=== PATIENT | female | born 1990 | race African-American/Black ===

== ENCOUNTER 2017-10-04 15:45 | Observation (INO) | payer SELFPAY ==
[2017-10-04] MEDS ORDERED: SODIUM CHLORIDE 0.9% FLUSH 10 ML FLUSH IVF (16:30)
[2017-10-04] MEDS: KETOROLAC TROMETHAMINE 30 MG/ML (IVP) VIAL IV PUSH (17:08)
[2017-10-04] MEDS: SODIUM CHLOR 0.9% 1000 ML INJ 1,000 ML IV (17:08)
[2017-10-04 17:35] LABS: AUTOMATED NEUTROPHIL # 4.6 TH/MM3 (1.8-7.7); BASOPHIL # 0.1 TH/MM3 (0-0.2); BASOPHIL % 0.7 % (0.0-2.0); EOSINOPHIL # 0.5 TH/MM3 (0-0.4); EOSINOPHIL % 5.6 % (0.0-4.0); HEMATOCRIT 41.5 % (35.0-46.0); HEMO FLAGS DIFF FINAL; HEMOGLOBIN 13.1 GM/DL (11.6-15.3); LYMPH % 36.4 % (9.0-44.0); LYMPHOCYTE # 3.4 TH/MM3 (1.0-4.8); MEAN CORPUSCULAR HEMOGLOBIN 21.8 PG (27.0-34.0); MEAN CORPUSCULAR HGB CONC 31.6 % (32.0-36.0); MEAN PLATELET VOLUME 9.6 FL (7.0-11.0); MONO % 7.5 % (0.0-8.0); MONOCYTE # 0.7 TH/MM3 (0-0.9); NEUT % 49.8 % (16.0-70.0); PLATELET COUNT 219 TH/MM3 (150-450); RED BLOOD COUNT 6.02 MIL/MM3 (4.00-5.30); RED CELL DISTRIBUTION WIDTH 15.4 % (11.6-17.2); WHITE BLOOD COUNT 9.3 TH/MM3 (4.0-11.0)
[2017-10-04 17:48] LABS: PROTHROMBIN TIME - PATIENT 9.9 SEC (9.8-11.6)
[2017-10-04 17:50] LABS: D-DIMER 0.55 MG/L FEU (0.00-0.50)
[2017-10-04 17:54] LABS: ALBUMIN 3.4 GM/DL (3.4-5.0); ANION GAP 7 MEQ/L (5-15); AST (GOT) 14 U/L (15-37); BICARBONATE 27.3 MEQ/L (21.0-32.0); BLOOD UREA NITROGEN 13 MG/DL (7-18); CALCIUM 8.4 MG/DL (8.5-10.1); CHLORIDE 104 MEQ/L (98-107); CREATININE 0.85 MG/DL (0.50-1.00); GLOMERULAR FILTRATION RATE 96 ML/MIN (>89); GLUCOSE,RANDOM 175 MG/DL (74-106); POTASSIUM 3.9 MEQ/L (3.5-5.1); SODIUM (NA) 138 MEQ/L (136-145)
[2017-10-04 17:55] LABS: ALT (GPT) 17 U/L (10-53)
[2017-10-04 17:58] LABS: ALKALINE PHOSPHATASE 61 U/L (45-117); TOTAL BILIRUBIN ADULT 0.2 MG/DL (0.2-1.0); TOTAL PROTEIN 7.1 GM/DL (6.4-8.2); TROPONIN I LESS THAN 0.02 NG/ML (0.02-0.05)
[2017-10-04] MEDS: IOHEXOL 350 MG/ML 10 ML VIAL (for RAD DIAG) IVCONTRAST (18:45)
[2017-10-04] MEDS ORDERED: ACETAMINOPHEN 325 MG TAB PO (19:30)
[2017-10-04] MEDS ORDERED: SENNOSIDES 8.6 MG TAB PO (19:30)
[2017-10-04] MEDS ORDERED: SODIUM CHLORIDE 0.9% FLUSH 10 ML FLUSH IV FLUSH (19:30)
[2017-10-04] MEDS ORDERED: ONDANSETRON HCL 4 MG/2 ML VIAL IVP (19:30)
[2017-10-04] MEDS ORDERED: NALOXONE HCL 0.4 MG/ML AMP IV PUSH (19:30)
[2017-10-04] MEDS ORDERED: MAGNESIUM HYDROXIDE SUSP 30 ML CUP PO (19:30)
[2017-10-04] MEDS: SODIUM CHLORIDE 0.9% FLUSH 10 ML FLUSH IV FLUSH (20:55)
[2017-10-05] MEDS ORDERED: METOPROLOL TARTRATE 25 MG TAB PO (03:15)
[2017-10-05] MEDS ORDERED: RESP: IPRATROPIUM 0.5 MG/2.5 ML NEB NEB (03:45)
[2017-10-05] MEDS: METOPROLOL TARTRATE 25 MG TAB PO ×4 (03:52→21:45)
[2017-10-05] MEDS: ENOXAPARIN SODIUM 120 MG/0.8 ML SYRINGE SQ (03:52)
[2017-10-05] MEDS ORDERED: GLUCAGON 1 MG/ML VIAL OTHER (07:45)
[2017-10-05] MEDS ORDERED: DEXTROSE 50% IN WATER 50 ML VIAL(D50) IV PUSH (07:45)
[2017-10-05] MEDS: INSULIN ASPART SUPPLEMENTAL SCALE SQ ×4 (08:00→21:00)
[2017-10-05 08:03] LABS: AUTOMATED NEUTROPHIL # 3.1 TH/MM3 (1.8-7.7); BASOPHIL # 0.1 TH/MM3 (0-0.2); BASOPHIL % 0.7 % (0.0-2.0); EOSINOPHIL # 0.6 TH/MM3 (0-0.4); EOSINOPHIL % 7.4 % (0.0-4.0); HEMATOCRIT 39.3 % (35.0-46.0); HEMO FLAGS DIFF FINAL; HEMOGLOBIN 12.3 GM/DL (11.6-15.3); LYMPH % 43.1 % (9.0-44.0); LYMPHOCYTE # 3.3 TH/MM3 (1.0-4.8); MEAN CELL VOLUME 68.4 FL (80.0-100.0); MEAN CORPUSCULAR HEMOGLOBIN 21.4 PG (27.0-34.0); MEAN CORPUSCULAR HGB CONC 31.4 % (32.0-36.0); MEAN PLATELET VOLUME 9.2 FL (7.0-11.0); MONO % 8.8 % (0.0-8.0); MONOCYTE # 0.7 TH/MM3 (0-0.9); PLATELET COUNT 208 TH/MM3 (150-450); RED BLOOD COUNT 5.74 MIL/MM3 (4.00-5.30); RED CELL DISTRIBUTION WIDTH 15.4 % (11.6-17.2); WHITE BLOOD COUNT 7.8 TH/MM3 (4.0-11.0)
[2017-10-05 08:20] LABS: BACTERIA, URINE RARE /hpf; BILIRUBIN, URINE NEG (NEG); BLOOD, URINE TRACE (NEG); GLUCOSE,URINE NEG (NEG); KETONE, URINE NEG (NEG); MUCUS URINE MOD /lpf (OCC); NITRITE,URINE NEG (NEG); SQUAMOUS EPITHELIAL CELL URINE 1 /hpf (0-5); URINE COLOR YELLOW (YELLW/STRAW); URINE LEUKOCYTE ESTERASE NEG (NEG)
[2017-10-05 08:21] LABS: COMMENT (UR) CULT NOT INDICATED; CULTURE IF INDICATED CULT NOT INDICATED
[2017-10-05] MEDS: SODIUM CHLORIDE 0.9% FLUSH 10 ML FLUSH IV FLUSH ×2 (08:24→21:00)
[2017-10-05 08:28] LABS: AMPHETAMINE, URINE NEG (NEG); BARBITURATES, URINE NEG (NEG); BENZODIAZEPINE,URINE NEG (NEG); CANNABINOIDS, URINE POS (NEG); COCAINE, URINE NEG (NEG)
[2017-10-05 08:29] LABS: ANION GAP 5 MEQ/L (5-15); BICARBONATE 27.1 MEQ/L (21.0-32.0); BLOOD UREA NITROGEN 14 MG/DL (7-18); CHLORIDE 107 MEQ/L (98-107); CREATININE 0.77 MG/DL (0.50-1.00); GLOMERULAR FILTRATION RATE 108 ML/MIN (>89); GLUCOSE,RANDOM 141 MG/DL (74-106); POTASSIUM 4.4 MEQ/L (3.5-5.1); SODIUM (NA) 139 MEQ/L (136-145)
[2017-10-05 12:51] LABS: HEMOGLOBIN A1C 8.2 % (4.3-6.0); HEMOGLOBIN A1a 0.8 %; HEMOGLOBIN A1b 2.1 %; HEMOGLOBIN Ao 81.5 %; HEMOGLOBIN LA1C 2.2 %; HEMOGLOBIN P3 3.9 %
[2017-10-05] MEDS ORDERED: hydrALAZINE HCL 10 MG TAB PO (16:30)
[2017-10-05] MEDS ORDERED: ENALAPRILAT 1.25 MG/ML VIAL IV PUSH (16:30)
[2017-10-06] MEDS: ENOXAPARIN SODIUM 120 MG/0.8 ML SYRINGE SQ ×2 (04:57→17:22)
[2017-10-06] MEDS: INSULIN ASPART SUPPLEMENTAL SCALE SQ ×4 (08:00→21:00)
[2017-10-06] MEDS: SODIUM CHLORIDE 0.9% FLUSH 10 ML FLUSH IV FLUSH ×2 (08:35→21:00)
[2017-10-06] MEDS: METOPROLOL TARTRATE 25 MG TAB PO ×2 (08:35→22:59)
[2017-10-06 12:43] LABS: BETA HCG QUANT LESS THAN 1 MIU/ML (0-5)
[2017-10-07] MEDS: INSULIN ASPART SUPPLEMENTAL SCALE SQ ×5 (08:00→22:10)
[2017-10-07] MEDS ORDERED: DILTIAZEM INJ 125 MG in SODIUM CHLORIDE 0.9% INJ 100 ML IV (08:15)
[2017-10-07] MEDS: SODIUM CHLORIDE 0.9% FLUSH 10 ML FLUSH IV FLUSH ×2 (09:00→21:03)
[2017-10-07] MEDS: SODIUM CHLOR 0.9% 1000 ML INJ 1,000 ML IV (09:50)
[2017-10-07] MEDS: LEVOFLOXACIN 500 MG PREMIX INJ 100 ML IV (09:50)
[2017-10-07] MEDS: METOPROLOL TARTRATE 25 MG TAB PO (09:51)
[2017-10-07] MEDS ORDERED: HEPARIN-NS/PF INJ 2,000 ML (13:41)
[2017-10-07] MEDS ORDERED: HEPARIN-D5W 25,000 U/250 ML 250 ML (13:58)
[2017-10-07] MEDS ORDERED: HEPARIN SODIUM - IV 10,000 UNITS/10 ML VIAL (13:59)
[2017-10-07] MEDS ORDERED: PROTAMINE SULFATE 50 MG/5 ML VIAL (13:59)
[2017-10-07] MEDS ORDERED: ISOPROTERENOL HCL 1 MG/5 ML AMP (13:59)
[2017-10-07] MEDS ORDERED: DO NOT ADM ANY ANTICOAGULANT DRUGS (16:35)
[2017-10-07] MEDS ORDERED: LIDOCAINE HCL 1% 50 ML VIAL INFIL (17:00)
[2017-10-07] MEDS ORDERED: ATROPINE SULFATE 1 MG/ML VIAL IV PUSH (17:00)
[2017-10-07] MEDS ORDERED: METOCLOPRAMIDE HCL 10 MG/2 ML VIAL IV PUSH (17:00)
[2017-10-07] MEDS ORDERED: oxyCODONE/ACETAMINOPHEN 5 MG/325 MG TAB PO ×2 (17:00)
[2017-10-07] MEDS ORDERED: LORazepam 2 MG/ML VIAL IV PUSH (17:00)
[2017-10-07] MEDS: BACITRACIN OINT 0.9 GM PKT TOP (17:00)
[2017-10-07] MEDS ORDERED: ONDANSETRON HCL 4 MG/2 ML VIAL IV PUSH (17:00)
[2017-10-07] MEDS ORDERED: SODIUM CHLOR 0.9% 250 ML INJ 250 ML IV (17:00)
[2017-10-07] MEDS: APIXABAN 5 MG TABLET PO (21:03)
[2017-10-08 04:34] LABS: APTT (PATIENT) 27.1 SEC (24.3-30.1); PROTHROMBIN TIME - PATIENT 10.3 SEC (9.8-11.6)
[2017-10-08] MEDS: INSULIN ASPART SUPPLEMENTAL SCALE SQ ×2 (08:00→12:00)
[2017-10-08] MEDS: APIXABAN 5 MG TABLET PO (08:13)
[2017-10-08] MEDS: SODIUM CHLORIDE 0.9% FLUSH 10 ML FLUSH IV FLUSH (09:00)
== END 2017-10-08 14:15 | disposition home or self-care (01) ==
LOC: HCPC 10-07 09:19 → NEPE 15:45 → NEDA 19:19 → NEPFCDU 20:05 → NEPGCP 10-05 18:47
DX: I48.91 Unspecified atrial fibrillation (principal); R53.1 Weakness; R07.1 Chest pain on breathing; R10.2 Pelvic and perineal pain; R06.02 Shortness of breath; R79.1 Abnormal coagulation profile; F17.210 Nicotine dependence, cigarettes, uncomplicated; F12.90 Cannabis use, unspecified, uncomplicated; E11.65 Type 2 diabetes mellitus with hyperglycemia; Z71.3 Dietary counseling and surveillance
CPT/HCPCS: 00537; 71045; 71275; 80048; 80053; 80307; 81001; 82948; 83036; 84443; 84484; 84702; 84703; 85002; 85002-91; 85025; 85379; 85610; 85730; 87804; 87804-59; 93005; 93306; 93312; 93320; 93325; 93613; 93623; 93656; 93662; 96361; 96365; 96372; 96375; 99285-25